=== PATIENT | male | born 1950 | race Caucasian/White ===

== ENCOUNTER 2017-10-02 07:46 | Emergency (ER) | payer MEDICARE, MEDICAID ==
[~2017-10-02] VITALS: Ht 172.7 cm; Wt 95.5 kg
[~2017-10-02 07:46] MED LIST: DILT180C36 PO; GABA600T PO; GLIP5 PO; HYDR-3535 PO; JANU100T PO; METF500 PO; PRAD75CA PO
[2017-10-02 07:48] VITALS: BP 191/99; PULSE 96; RESP 18; TEMP 98.8; O2SAT 97
[2017-10-02] MEDS: SODIUM CHLOR 0.9% 1000 ML INJ 1,000 ML IV ONE ×2 (08:30→08:50)
[2017-10-02] MEDS ORDERED: GLIP5TAB8 PO (08:43)
[2017-10-02] MEDS ORDERED: METF500T PO (08:43)
[2017-10-02] MEDS ORDERED: GABA600T PO (08:43)
[2017-10-02] MEDS ORDERED: SITA1TAB2 PO (08:43)
[2017-10-02] MEDS ORDERED: PRAD75CA PO (08:43)
[2017-10-02] MEDS ORDERED: DILT180C36 PO (08:43)
--- NOTE | 2017-10-02 08:43 | PD ---
HPI Chief Complaint: Skin Problem Time Seen by Provider: 08:08 Travel History International Travel<30 days: No Contact w/Intl Traveler<30days: No Traveled to known affect area: No History of Present Illness HPI This is a 67-year-old male who presents to the emergency department having been climbing on a table at home when he fell and scratched his leg on the corner sustaining a wound. He's been putting cream on the wound but has not been helping. He does have a history of diabetes. The wound is constant, moderate severity, with yellow drainage, with no associated fevers or chills. It's moderately painful. PFSH Past Medical History Arthritis: Yes (GÓMEZ HANDS) Asthma: No Heart Rhythm Problems: Yes (A-FIB) Cancer: No Cardiovascular Problems: Yes (AFIB) High Cholesterol: No Chest Pain: No Congestive Heart Failure: No COPD: Yes Diabetes: Yes Patient Takes Glucophage: Yes Diminished Hearing: No Endocrine: Yes Gastrointestinal Disorders: Yes GERD: Yes Genitourinary: Yes Hiatal Hernia: No Hypertension: Yes Immune Disorder: No Implanted Vascular Access Dvce: No Kidney Stones: No Musculoskeletal: Yes Neurologic: No Psychiatric: No Reproductive: No Respiratory: Yes Renal Failure: No Sleep Apnea: Yes (DOES NOT WEAR CPAP) Ulcer: No Past Surgical History Abdominal Surgery: No AICD: No Arteriovenous Shunt: No Cardiac Surgery: No Ear Surgery: No Endocrine Surgery: No Eye Surgery: Yes ("CATARACT") Genitourinary Surgery: No Gynecologic Surgery: No Insulin Pump: No Joint Replacement: No Oral Surgery: No Pacemaker: No Thoracic Surgery: No Tonsillectomy: Yes Other Surgery: Yes ("BONE CYST REMOVED FROM R.SHOULDER", L foot ulcer ) Social History Alcohol Use: Yes (3-4 X A WEEK BEER) Tobacco Use: No (QUIT IN 1999) Substance Use: No Allergies-Medications (Allergen,Severity, Reaction): Coded Allergies: No Known Allergies (Verified , 09/27/15) Reported Meds & Prescriptions Reported Meds & Active Scripts Active Reported Januvia (Sitagliptin Phosphate) 100 Mg Tab 100 Mg PO DAILY Metformin (Metformin HCl) 500 Mg Tab 500 Mg PO BIDPC Glipizide 5 Mg Tab 5 Mg PO BIDAC Take 30 minutes before a meal Gabapentin 600 Mg Tab 600 Mg PO TID Pradaxa (Dabigatran) 75 Mg Cap 75 Mg PO BID Dilt-Xr (Diltiazem HCl) 180 Mg Caper 180 Mg PO DAILY Review of Systems Except as stated in HPI: all other systems reviewed are Neg Physical Exam Narrative GENERAL:Well appearing, no acute distress SKIN: 8 x 3 cm wound on the distal anterior right tibia with some granulation tissue and minimal surrounding erythema. HEAD: Atraumatic. Normocephalic. EYES: Pupils equal and round. No injection or drainage. ENT: Moist mucous membranes NECK: Trachea midline. CARDIOVASCULAR: Regular rate and rhythm. No murmur appreciated. RESPIRATORY: Clear to auscultation. Breath sounds equal bilaterally. GASTROINTESTINAL: Abdomen soft, non-tender, nondistended. MUSCULOSKELETAL: No obvious deformities. NEUROLOGICAL: Awake and alert. No obvious cranial nerve deficits. Moving all extremities. PSYCHIATRIC: Appropriate mood and affect; insight and judgment normal. Data Data Last Documented VS Vital Signs Date Time Temp Pulse Resp B/P (MAP) Pulse Ox O2 Delivery O2 Flow Rate FiO2 10/02/17 08:38 89 18 10/02/17 07:48 98.8 191/99 (129) 97 Room Air Orders Orders Complete Blood Count With Diff (10/02/17 08:17) Basic Metabolic Panel (Bmp) (10/02/17 08:17) Sodium Chlor 0.9% 1000 Ml Inj (Ns 1000 M (10/02/17 08:30) ^ Insert Iv (10/02/17 08:17) Labs Laboratory Tests Test 10/02/17 08:36 White Blood Count 7.7 TH/MM3 Red Blood Count 5.39 MIL/MM3 Hemoglobin 17.5 GM/DL Hematocrit 52.1 % Mean Corpuscular Volume 96.5 FL Mean Corpuscular Hemoglobin 32.4 PG Mean Corpuscular Hemoglobin Concent 33.6 % Red Cell Distribution Width 13.9 % Platelet Count 211 TH/MM3 Mean Platelet Volume 9.4 FL Neutrophils (%) (Auto) 71.9 % Lymphocytes (%) (Auto) 17.2 % Monocytes (%) (Auto) 8.5 % Eosinophils (%) (Auto) 1.5 % Basophils (%) (Auto) 0.9 % Neutrophils # (Auto) 5.6 TH/MM3 Lymphocytes # (Auto) 1.3 TH/MM3 Monocytes # (Auto) 0.7 TH/MM3 Eosinophils # (Auto) 0.1 TH/MM3 Basophils # (Auto) 0.1 TH/MM3 CBC Comment DIFF FINAL Differential Comment Blood Urea Nitrogen 15 MG/DL Creatinine 1.21 MG/DL Random Glucose 190 MG/DL Calcium Level 9.5 MG/DL Sodium Level 139 MEQ/L Potassium Level 4.1 MEQ/L Chloride Level 105 MEQ/L Carbon Dioxide Level 24.7 MEQ/L Anion Gap 9 MEQ/L Estimat Glomerular Filtration Rate 60 ML/MIN MDM Medical Decision Making Medical Screen Exam Complete: Yes Emergency Medical Condition: Yes Interpretation(s) Afebrile, mild tachycardia No leukocytosis Differential Diagnosis Cellulitis, wound infection, sepsis Narrative Course This is a 67-year-old male who presents to the emergency department with a wound on his distal right lower extremity. He has a minimal surrounding cellulitis. He has no leukocytosis and is otherwise nontoxic appearing. I think is appropriate for outpatient therapy. He was instructed to wash the wound with soap and water twice daily and he was discharged with topical and oral antibiotic. Diagnosis Primary Impression: Wound infection Patient Instructions: General Instructions Additional Instructions: If you develop fever, increasing redness, warmth, or spreading of your infection , or severe pain return to the emergency department immediately as you may require antibiotics through your IV. Complete your course of antibiotics as prescribed. Med/Other Pt SpecificInfo: Prescription(s) given Scripts Bacitracin Topical (Bacitracin Topical) 500 Unit/Gm Oint 1 APPLIC TOPICAL BID for Infection, #30 GM 0 Refills Prov: Venice Mckeon MD 10/02/17 Sulfamethoxazole-Trimethoprim (Bactrim DS) 800-160 Mg Tab 1 TAB PO BID for Infection, #14 TAB 0 Refills Prov: Venice Mckeon MD 10/02/17 Cephalexin (Keflex) 500 Mg Capsule 500 MG PO BID for Infection for 7 Days, #14 CAP 0 Refills Prov: Venice Mckeon MD 10/02/17 Disposition: 01 DISCHARGE HOME Condition: Stable Venice Mckeon MD Oct 02, 2017 08:43
[2017-10-02 08:53] LABS: AUTOMATED NEUTROPHIL # 5.6 TH/MM3 (1.8-7.7); BASOPHIL # 0.1 TH/MM3 (0-0.2); BASOPHIL % 0.9 % (0.0-2.0); EOSINOPHIL # 0.1 TH/MM3 (0-0.4); EOSINOPHIL % 1.5 % (0.0-4.0); HEMATOCRIT 52.1 % (39.0-51.0); HEMO FLAGS DIFF FINAL; LYMPH % 17.2 % (9.0-44.0); LYMPHOCYTE # 1.3 TH/MM3 (1.0-4.8); MEAN CELL VOLUME 96.5 FL (80.0-100.0); MEAN CORPUSCULAR HEMOGLOBIN 32.4 PG (27.0-34.0); MEAN CORPUSCULAR HGB CONC 33.6 % (32.0-36.0); MONO % 8.5 % (0.0-8.0); NEUT % 71.9 % (16.0-70.0); PLATELET COUNT 211 TH/MM3 (150-450); RED BLOOD COUNT 5.39 MIL/MM3 (4.50-5.90); RED CELL DISTRIBUTION WIDTH 13.9 % (11.6-17.2); WHITE BLOOD COUNT 7.7 TH/MM3 (4.0-11.0)
[2017-10-02 09:28] LABS: BICARBONATE 24.7 MEQ/L (21.0-32.0); POTASSIUM 4.1 MEQ/L (3.5-5.1)
[2017-10-02] MEDS ORDERED: BACT800T5 PO (10:08)
[2017-10-02] MEDS ORDERED: CEPH-460 PO (10:08)
[2017-10-02] MEDS ORDERED: BACI500O9 TOPICAL (10:08)
== END 2017-10-02 11:12 | disposition home or self-care (01) ==
LOC: NEPE 07:46
DX: L03.115 Cellulitis of right lower limb (principal); R00.0 Tachycardia, unspecified; E11.9 Type 2 diabetes mellitus without complications; M19.042 Primary osteoarthritis, left hand; M19.041 Primary osteoarthritis, right hand; I48.91 Unspecified atrial fibrillation; J44.9 Chronic obstructive pulmonary disease, unspecified; I10 Essential (primary) hypertension; K21.9 Gastro-esophageal reflux disease without esophagitis
CPT/HCPCS: 80048; 85025; 99284; J7030